=== PATIENT | female | born 2000 ===

== ENCOUNTER 2021-11-29 18:09 | Outpatient (CLI) | payer SELFPAY ==
[2021-11-29 18:35] VITALS: BP 124/80
--- NOTE | 2021-11-29 22:21 | Ultrasound Report ---
ULTRASOUND OBSTETRIC LIMITED ULTRASOUND BIOPHYSICAL PROFILE INDICATION / CLINICAL INFORMATION: BPP. TECHNIQUE: Transabdominal. COMPARISON: None available. FINDINGS: BREATHING MOVEMENT = 2 GROSS BODY MOVEMENT = 2 TONE = 2 QUALITATIVE AMNIOTIC FLUID VOLUME = 2 TOTAL BIOPHYSICAL SCORE = 8/8 HEART RATE (beats per minute): 127 AMNIOTIC FLUID INDEX (cm) = 9.4 (normal = 7-24 cm) PRESENTATION: Cephalic. ADDITIONAL FINDINGS: Placenta is anterior and fundal. No sonographic evidence of placental abruption. IMPRESSION: 1. Biophysical Score = 8/8 2. Amniotic fluid index of 9.4 cm. 3. Placenta is anterior and fundal without sonographic evidence of abruption. Signer Name: Nader Burciaga MD Signed: 11/29/2021 10:17 PM Workstation Name: [id number]
== END 2021-11-29 22:19 | disposition home or self-care (01) ==
LOC: TRG 18:09 → APU 18:11 → TRG 22:25
PROVIDERS: ATTEND Obstetrics & Gynecology
DX: O62.9 Abnormality of forces of labor, unspecified (principal); Z3A.40 40 weeks gestation of pregnancy
CPT/HCPCS: 76815; 76819

== ENCOUNTER 2021-11-30 17:43 | Inpatient (IN) | payer SELFPAY ==
[2021-11-30 20:58] LABS: Bilirubin,Urine NEG (Negative); Blood,Urine NEG (Negative); Color,Urine Yellow (Yellow); Protein,Urine <15 mg/dL mg/dL (Negative); Urobilinogen,Urine < 2.0 mg/dL (<2.0)
[2021-11-30] MEDS ORDERED: ACETAMINOPHEN 500 MG TAB PO ONE (21:00)
[2021-11-30 21:02] LABS: RBC,Urine < 1.0 /HPF (0.0-6.0); WBC,Urine < 1.0 /HPF (0.0-6.0)
[2021-11-30] MEDS ORDERED: LOPERAMIDE 2 MG CAP PO PRN (21:58)
[2021-11-30] MEDS ORDERED: ePHEDrine SULFATE 50 MG/1 ML INJ IV PRN (21:58)
[2021-11-30] MEDS ORDERED: METHYLERGONOVINE MALEATE 0.2 MG/ML VIAL IM PRN (21:58)
[2021-11-30] MEDS ORDERED: MINERAL OIL 30 ML ORAL LIQD PO PRN (21:58)
[2021-11-30] MEDS ORDERED: LIDOCAINE (2%) 20 MG/1 ML VIAL 20 ML MDV INFILTRATI ONE (21:58)
[2021-11-30] MEDS ORDERED: TERBUTALINE 1 MG/1 ML INJ SUB-Q PRN (21:58)
[2021-11-30] MEDS ORDERED: fentaNYL 100 MCG/2 ML INJ IV PRN (21:58)
[2021-11-30] MEDS ORDERED: BUTORPHANOL 2 MG/1 ML INJ IV PRN (21:58)
[2021-11-30] MEDS ORDERED: CARBOPROST TROMETHAMINE 250 MCG/1 ML INJ IM PRN (21:58)
[2021-11-30] MEDS ORDERED: ONDANSETRON 4 MG/2 ML INJ IV PRN (21:58)
--- NOTE | 2021-11-30 22:09 | History and Physical Report ---
History of Present Illness Date of examination: 11/30/21 Chief complaint: LOF History of present illness: 21 y/o at 40-4/7 weeks presents to OBT reporting LOF. No VB. CTX are irregular. Good FM. ROM Plus (-) and CIPRIANO > 7 cm. However, EFW is less than the 1st %-ile. BPP= 10/10. This patient is admitted for IOL secondary to IUGR. Past History Past Medical History: no pertinent history Past Surgical History: no surgical history Family/Genetic History: none Social history: no significant social history - Obstetrical History Expected Date of Delivery: 11/26/21 Actual Gestation: 40 Week(s) 4 Day(s) : 1 Para: 0 Medications and Allergies Allergies Allergy/AdvReac Type Severity Reaction Status Date / Time No Known Allergies Allergy Verified 11/29/21 18:50 Home Medications Medication Instructions Recorded Confirmed Last Taken Type Multivitamin Tablet 1 tab PO DAILY 11/29/21 11/29/21 1 Day Ago History ~11/28/21 Active Meds: Active Medications Acetaminophen (Acetaminophen 325 Mg Tab) 650 mg PO Q4H PRN PRN Reason: Pain, Mild (1-3) Carboprost Tromethamine (Carboprost Tromethamine 250 Mcg/1 Ml Inj) 250 mcg IM ONCE PRN PRN Reason: Uterine Bleeding Ephedrine Sulfate (Ephedrine Sulfate 50 Mg/1 Ml Inj) 10 mg IV Q2M PRN PRN Reason: Hypotension Lactated Ringer's (Lactated Ringers) 1,000 mls @ 125 mls/hr IV DIRECT RAMU Oxytocin/Sodium Chloride (Pitocin/Ns 30 Unit/500ml) 30 units in 500 mls @ 40 mls/hr IV TITR RAMU; Protocol Lidocaine (Lidocaine (2%) 20 Mg/1 Ml Vial 20 Ml Mdv) 20 ml INFILTRATI ONCE ONE Stop: 11/30/21 21:59 Loperamide HCl (Loperamide 2 Mg Cap) 2 mg PO ONCE PRN PRN Reason: give with Hemabate Methylergonovine Maleate (Methylergonovine Maleate 0.2 Mg/Ml Vial) 0.2 mg IM ONCE PRN PRN Reason: Uterine Bleeding Mineral Oil (Mineral Oil 30 Ml Oral Liqd) 30 ml PO QHS PRN PRN Reason: Constipation Terbutaline Sulfate (Terbutaline 1 Mg/1 Ml Inj) 0.25 mg SUB-Q ONCE PRN PRN Reason: Hyperstimulation/Hypertonicity Review of Systems All systems: negative - Vital Signs Vital signs: Vital Signs Pulse Pulse Ox 72 81 L 11/30/21 18:02 11/30/21 18:02 Temp Pulse Resp BP Pulse Ox 98.4 F 67 18 122/77 98 11/30/21 18:08 11/30/21 22:03 11/30/21 18:08 11/30/21 18:08 11/30/21 22:03 - Physical Exam Breasts: Positive: normal Cardiovascular: Regular rate Lungs: Positive: Normal air movement Abdomen: Positive: normal appearance Genitourinary (Female): Positive: normal external genitalia Vulva: both: normal Vagina: Positive: normal moisture Uterus: Positive: enlarged Adnexa: both: normal Anus/Rectum: Positive: normal perianal skin Extremities: Positive: normal Deep Tendon Reflex Grade: Normal +2 - Obstetrical FHR: other (NST is reactive) Cervical Dilatation: 2 Cervical Effacement Percentage: 50 station: -3 Results All other labs normal. Ultrasound: pending Assessment and Plan - Patient Problems (1) 40 weeks gestation of Current Visit: Yes Status: Acute Plan to address problem: Prentatal care is up-to-date. Need to obtain records and GBS status in AM. (2) IUGR (intrauterine growth restriction) Current Visit: Yes Status: Acute Plan to address problem: Etiology is unknown. EFW is less than the 1st %-ile. Plan is IOL. Ripen cervix with Cytotec.
--- NOTE | 2021-11-30 22:28 | Ultrasound Report ---
ULTRASOUND OBSTETRIC LIMITED INDICATION / CLINICAL INFORMATION: EFW, CIPRIANO. Clinical Gestational Age (GA) in weeks, days: 40 weeks 4 days TECHNIQUE: Transabdominal. COMPARISON: Ultrasound 11/29/2021. FINDINGS: HEART RATE (beats per minute): 131 AMNIOTIC FLUID INDEX (cm) = 7.4 (normal = 7-24 cm) PRESENTATION: Cephalic. BREATHING MOVEMENT = 2 GROSS BODY MOVEMENT = 2 TONE = 2 QUALITATIVE AMNIOTIC FLUID VOLUME = 2 TOTAL BIOPHYSICAL SCORE = 8/8 Biparietal Diameter = 9.2 cm = 37, 3 weeks, days Head Circumference = 33.0 cm = 37, 4 weeks, days Abdominal Circumference = 28.9 cm = 32, 6 weeks, days Femur Length = 6.8 cm = 35, 1 weeks, days Average Ultrasound Age (AUA) = 35, 5 weeks, days Estimated Weight in grams (if calculated): 2431 ADDITIONAL FINDINGS: None. IMPRESSION: 1. Single living gestation as above. 2. Biophysical Score = 8/8 . 3. Amniotic index 7.4 cm. Signer Name: Teto Bradley MD Signed: 11/30/2021 10:24 PM Workstation Name: [id number]
[2021-11-30 23:23] LABS: Hematocrit 37.7 % (30.3-42.9); Hemoglobin 12.3 gm/dl (10.1-14.3); Mean Corpuscular HGB Conc 33 % (30-34); Mean Corpuscular Volume 82 fl (79-97); Platelet Count 237 K/mm3 (140-440); Red Blood Count 4.59 M/mm3 (3.65-5.03); Red Cell Distribution Width 15.6 % (13.2-15.2)
[2021-11-30] MEDS: LACTATED RINGERS 1,000 ML IV SCH (23:29)
[2021-12-01] MEDS: miSOPROStol 25 MCG TAB PO SCH ×2 (00:15→04:01)
[2021-12-01] MEDS ORDERED: OXYTOCIN 10 UNIT/1 ML INJ ONE (04:48)
[2021-12-01] MEDS ORDERED: LIDOCAINE (2%) 20 MG/1 ML VIAL 20 ML MDV INFILTRATI ONE ×4 (04:48→19:56)
[2021-12-01] MEDS: ACETAMINOPHEN 325 MG TAB PO PRN ×2 (05:40→17:31)
[2021-12-01] MEDS ORDERED: AMPICILLIN/NS 2 GM/100 ML 2 GM/100 ML BAG IV SCH (08:00)
[2021-12-01] MEDS ORDERED: BUTORPHANOL 2 MG/1 ML INJ ONE (08:07)
[2021-12-01] MEDS: OXYTOCIN DRIP 30 UNITS/500 ML BAG IV SCH ×2 (08:22→20:54)
[2021-12-01] MEDS ORDERED: OXYTOCIN DRIP 30 UNITS/500 ML BAG IV SCH ×2 (10:00→21:20)
[2021-12-01] MEDS: LACTATED RINGERS 1,000 ML IV SCH ×2 (10:40→15:53)
--- NOTE | 2021-12-01 10:43 | Event Note ---
Date: 12/01/21 pt evaluated after report received from Dr. Fernandez that pt had SROM and same clear. FHR category I and pelvic 4/100/-1 and pitocin gave and 3rd dose of cytotec cancelled. Pit now at 6mu/min; pt has received stadol x1 dose per nurse. Pt encouraged to get epidural and IUPC placed with frequent ctx seen. Expect .
[2021-12-01] MEDS ORDERED: fentaNYL-BUPIV 2 MCG/ML-0.125% 200 MCG/100 ML BAG EPIDURAL SCH (12:00)
[2021-12-01] MEDS ORDERED: LACTATED RINGERS 250 ML IV SOLN IV ONE (12:00)
[2021-12-01] MEDS ORDERED: ePHEDrine SULFATE 50 MG/1 ML INJ IV PRN (12:00)
[2021-12-01] MEDS ORDERED: diphenhydrAMINE 50 MG/ML VIAL IV PRN (12:00)
[2021-12-01] MEDS ORDERED: ONDANSETRON 4 MG/2 ML INJ IV PRN ×3 (12:00→21:20)
[2021-12-01] MEDS ORDERED: NALOXONE 2 MG/2 ML INJ IV PRN (12:00)
[2021-12-01] MEDS ORDERED: NalbUPHINE 10 MG/1 ML INJ IV PRN ×2 (12:00→13:50)
--- NOTE | 2021-12-01 12:04 | Anesthesia Consultation ---
Anesthesia Consult and Med Hx Date of service: 12/01/21 - Airway Anesthetic Teeth Evaluation: Good ROM Head & Neck: Adequate Mental/Hyoid Distance: Adequate Mallampati Class: Class II Intubation Access Assessment: Probably Good - Pulmonary Exam CTA: Yes - Cardiac Exam Cardiac Exam: RRR - Pre-Operative Health Status ASA Pre-Surgery Classification: ASA2 Proposed Anesthetic Plan: Epidural - Pulmonary Hx Smoking: No Hx Asthma: No COPD: No Hx Pneumonia: No Hx Sleep Apnea: No - Cardiovascular System Hx Hypertension: No Hx Heart Attack/AMI: No Hx Angina: No - Central Nervous System Hx Seizures: No Hx Psychiatric Problems: No - Gastrointestinal Hx Gastroesophageal Reflux Disease: No - Endocrine Hx Renal Disease: No Hx End Stage Renal Disease: No Hx Liver Disease: No Hx Insulin Dependent Diabetes: No Hx Non-Insulin Dependent Diabetes: No Hx Hypothyroidism: No Hx Hyperthyroidism: No - Hematic Hx Anemia: No Hx Sickle Cell Disease: No - Other Systems Hx Alcohol Use: No
--- NOTE | 2021-12-01 12:05 | Progress Note ---
Labor Epidural - Labor Epidural Start Time: 11:35 Stop Time: 11:40 Performed by:: EDMOND BONILLA (Adelina Bueno SRNA) Procedure: Patient is requesting epidural for labor and pain. H&P, labs were reviewed. Patient IDed, H&P reviewed, all questions and concerns were answered, and consent was signed. Timeout was performed at bedside. Patient in sitting position. Sterile prep and drape was performed. 3ml of 1% lidocaine skin wheal at L[3]- L [4]. 17-gauge Tuohy epidural needle was advanced to loss of resistance with air technique 6cm. Negative CSF negative blood. Epidural catheter advanced to [12] centimeters. [negative] Aspiration [negative] test dose. Sterile dressing applied. Patient tolerated procedure.
--- NOTE | 2021-12-01 13:51 | Anesthesia Day of Surgery ---
Anesthesia Day of Surgery - Day of Surgery Patient Examined: Yes Patient H&P Reviewed: Yes Patient is NPO: Yes Beta Blockers: No Cardiac Clearance: No Pulmonary Clearance: No Uli's Test: N/A
[2021-12-01] MEDS ORDERED: NALOXONE 0.4 MG/1 ML INJ IV PRN (14:00)
[2021-12-01] MEDS ORDERED: AMPICILLIN/NS 1 GM/50 ML 1 GM/50 ML BAG IV SCH (14:00)
[2021-12-01] MEDS ORDERED: PROMETHAZINE 25 MG TAB PO PRN ×2 (15:00→21:20)
[2021-12-01] MEDS ORDERED: PROMETHAZINE 25 MG RECT SUPP PR PRN ×2 (15:00→21:20)
[2021-12-01] MEDS ORDERED: HYDROmorphone 1 MG/1 ML INJ IV PRN (15:00)
[2021-12-01] MEDS ORDERED: miSOPROStol 200 MCG TAB ONE (17:42)
[2021-12-01] MEDS ORDERED: GENTAMICIN/NS 80 MG/100 ML 100 ML IV ONE (19:18)
--- NOTE | 2021-12-01 20:35 | Procedure Note ---
OB Delivery Note - Delivery Date of Delivery: 12/01/21 Surgeon: LUNA BAILEY Estimated blood loss: other (250cc) - Vaginal Delivery presentation: vertex Delivery position: OA Intrapartum events: febrile- temp >100.3, other(please specify) (multiple condyloma at introitus more on right side and perineum) Delivery induction: none Delivery augmentation: pitocin Delivery monitor: external FHT, external uterine, internal uterine Route of delivery: Delivery placenta: spontaneous Delivery cord: nuchal cord, 3 umbilical vessels Episiotomy: none Delivery laceration: 1st degree (to right and left labia), 2nd degree (left vaginal wall) Delivery repair: chromic Anesthesia: local (lidocaine 1%), epidural Delivery comments: Pt complete and allowed to labor down. Pt then taught how to push effectively and epidural cut in half and pt could sense where and how to push effectively. SAVD of viable female infant uncomplicated. Nuchal cord tight and cut in between on perineum then delivered without difficulty. Placenta delivered complete and small amount calcifications noted. Pt given additional lidocaine to repair left and right 1st degree labial laceration using 2-0 chromic running locked suture and left "L" shaped laceration to vaginal wall that extended to perineum and this alos repaired with 2-0 chromic running locked suture with excellent hemostasis. Bimanual done and uterus firm. Will give pitocin x2 bags. Mom and baby stable. Pt to receive amp and gent antibiotics x24hrs to treat chorio and peds notified. Incidental note is multiple condyloma (not herpes) noted at delivery and peds notified. - Infant A at 1 minute: 8 at 5 minutes: 9 Infant Gender: Female (clear fluid and meconium small amount noted after baby delivered; wt 3100g)
[2021-12-01] MEDS ORDERED: diphenhydrAMINE 25 MG CAP PO PRN (21:20)
[2021-12-01] MEDS ORDERED: MAGNESIUM HYDROXIDE (MOM) ORAL LIQD UDC PO PRN (21:20)
[2021-12-01] MEDS ORDERED: oxyCODONE /ACETAMINOPHEN 5-325MG TAB PO PRN (21:20)
[2021-12-01] MEDS ORDERED: WITCH HAZEL/ GLYCERIN PAD TP PRN (21:20)
[2021-12-01] MEDS ORDERED: LANOLIN/ZINC/DIMETHICONE (LANSINOH) 7 GM TP PRN (21:20)
[2021-12-01] MEDS: GENTAMICIN 350 MG in SODIUM CHLORIDE 0.9% 100 ML IV SCH (22:48)
[2021-12-01] MEDS: IBUPROFEN 600 MG TAB PO SCH (23:30)
[2021-12-01] MEDS: DOCUSATE SODIUM 100 MG CAP PO SCH (23:31)
[2021-12-02] MEDS: AMPICILLIN/NS 2 GM/100 ML 2 GM/100 ML BAG IV SCH ×4 (05:05→23:51)
[2021-12-02] MEDS: LACTATED RINGERS 1,000 ML IV SCH (05:05)
[2021-12-02] MEDS: IBUPROFEN 600 MG TAB PO SCH ×3 (05:06→23:51)
[2021-12-02] MEDS ORDERED: PRENATAL VIT27-FE FUMARATE-FOLIC ACID VIT TAB PO SCH (10:00)
--- NOTE | 2021-12-02 10:39 | Progress Note ---
Assessment and Plan A: PP Day #1 Stable P: Follow Routine Orders 12 hour H/H Pending Subjective - Subjective Date of service: 12/02/21 Patient reports: appetite normal, voiding normally, pain well controlled, flatus, ambulating normally : doing well, bottle feeding Objective - Vital Signs Latest vital signs: Vital Signs Temp Pulse Resp BP BP Pulse Ox Pulse Ox 12/02/21 08:50 100 12/02/21 07:54 97.9 F 71 17 93/57 96 12/02/21 05:03 98 12/02/21 05:00 98.2 F 63 18 101/62 98 12/02/21 03:20 97 12/02/21 02:20 97 12/02/21 00:45 97 12/02/21 00:25 97.3 F L 96 H 18 122/78 94 12/01/21 23:30 97 12/01/21 22:50 98.5 F 76 18 115/86 97 97 12/01/21 22:30 18 12/01/21 21:23 92 H 113/60 93 12/01/21 21:20 122 H 95 12/01/21 21:17 92 H 94 12/01/21 21:15 81 98 12/01/21 21:10 73 98 12/01/21 21:08 77 110/59 12/01/21 21:05 90 97 12/01/21 21:00 80 96 12/01/21 20:55 77 96 12/01/21 20:53 88 120/62 92 12/01/21 20:50 89 97 12/01/21 20:45 109 H 98 12/01/21 20:40 106 H 97 12/01/21 20:38 98 H 106/65 12/01/21 20:35 110 H 96 12/01/21 20:30 105 H 96 12/01/21 20:25 84 96 12/01/21 20:23 96 H 108/67 12/01/21 20:20 97 H 98 12/01/21 20:15 85 96 12/01/21 20:10 86 96 12/01/21 20:08 95 H 102/58 93 12/01/21 20:05 89 96 12/01/21 20:00 89 94 12/01/21 19:55 83 96 12/01/21 19:53 83 109/58 94 12/01/21 19:50 87 98 12/01/21 19:39 66 100 12/01/21 19:35 60 89 12/01/21 19:32 118 H 100 12/01/21 19:25 125 H 99 12/01/21 19:20 115 H 99 12/01/21 19:15 104 H 95 12/01/21 19:10 111 H 94 12/01/21 19:09 117 H 94 12/01/21 19:05 106 H 95 12/01/21 19:03 113 H 94 12/01/21 19:00 98 H 97 12/01/21 18:55 100 H 99 12/01/21 18:50 96 H 98 12/01/21 18:45 104 H 100 12/01/21 18:40 111 H 99 12/01/21 18:35 98 H 98 12/01/21 18:30 102 H 100 12/01/21 18:25 105 H 99 12/01/21 18:20 107 H 99 12/01/21 18:15 119 H 98 12/01/21 18:10 114 H 97 12/01/21 18:05 120 H 99 12/01/21 18:01 101.3 F H 12/01/21 18:00 143 H 100 12/01/21 17:55 176 H 98 12/01/21 17:50 120 H 99 12/01/21 17:45 102 H 100 12/01/21 17:40 108 H 99 12/01/21 17:39 118 H 113/81 12/01/21 17:35 122 H 99 12/01/21 17:30 103 H 99 12/01/21 17:25 98 H 99 12/01/21 17:24 98 H 119/77 12/01/21 17:20 111 H 99 12/01/21 17:15 95 H 99 12/01/21 17:10 100 H 100 12/01/21 17:09 106 H 121/77 12/01/21 17:05 96 H 100 12/01/21 17:00 92 H 100 12/01/21 16:55 94 H 100 12/01/21 16:53 84 122/77 12/01/21 16:50 89 100 12/01/21 16:45 79 100 01/25/22 16:40 76 100 12/01/21 16:38 82 129/82 12/01/21 16:35 92 H 100 12/01/21 16:30 90 100 12/01/21 16:25 78 100 12/01/21 16:23 85 125/79 12/01/21 16:20 78 100 12/01/21 16:15 70 100 12/01/21 16:10 87 100 12/01/21 16:09 80 123/80 12/01/21 16:05 75 100 12/01/21 16:00 75 100 12/01/21 15:55 83 100 12/01/21 15:53 73 136/86 12/01/21 15:50 77 100 12/01/21 15:45 98 H 100 12/01/21 15:40 69 100 12/01/21 15:38 75 137/78 12/01/21 15:35 74 99 12/01/21 15:30 76 100 12/01/21 15:25 80 100 12/01/21 15:24 87 125/81 12/01/21 15:20 95 H 98 12/01/21 15:15 78 100 12/01/21 15:10 79 100 12/01/21 15:08 73 130/81 12/01/21 15:05 78 100 12/01/21 15:00 80 100 12/01/21 14:55 97 H 100 12/01/21 14:54 73 138/80 12/01/21 14:50 65 100 12/01/21 14:45 95 H 100 12/01/21 14:40 67 100 12/01/21 14:38 63 118/76 12/01/21 14:35 66 100 12/01/21 14:30 82 100 12/01/21 14:25 71 100 12/01/21 14:23 67 121/80 12/01/21 14:20 59 L 99 12/01/21 14:15 60 99 12/01/21 14:10 60 100 12/01/21 14:08 67 122/78 12/01/21 14:05 63 99 12/01/21 14:00 62 100 12/01/21 13:55 69 100 12/01/21 13:54 60 125/82 12/01/21 13:50 65 99 12/01/21 13:45 62 99 12/01/21 13:40 78 98 12/01/21 13:38 76 115/73 12/01/21 13:35 71 100 12/01/21 13:30 88 99 12/01/21 13:25 76 98 12/01/21 13:23 76 119/81 12/01/21 13:20 74 98 12/01/21 13:15 70 98 12/01/21 13:10 89 99 12/01/21 13:08 90 116/77 12/01/21 13:05 102 H 97 12/01/21 13:04 70 L 12/01/21 12:58 77 99 12/01/21 12:54 67 126/84 12/01/21 12:53 69 97 12/01/21 12:48 73 99 12/01/21 12:43 66 98 12/01/21 12:38 87 104/62 98 12/01/21 12:33 86 99 12/01/21 12:28 72 98 12/01/21 12:23 79 101/57 98 12/01/21 12:18 94 H 97 12/01/21 12:13 87 98 12/01/21 12:09 91 H 98/57 12/01/21 12:08 91 H 97 12/01/21 12:03 99 H 97 12/01/21 11:58 99 H 97 12/01/21 11:53 89 107/65 97 12/01/21 11:51 90 105/66 12/01/21 11:49 91 H 102/70 12/01/21 11:47 97 H 112/63 12/01/21 11:40 81 111/55 12/01/21 11:38 75 99 12/01/21 11:37 76 119/56 12/01/21 11:34 82 118/61 94 12/01/21 11:33 60 100 Intake and Output 12/01/21 12/02/21 12/02/21 22:59 06:59 14:59 Intake Total 83.2 1240 240 Output Total 1600 Balance 83.2 -360 240 Intake: IV 83.2 1000 Lactated Ringers 1,000 ml 1000 @ 125 mls/hr IV DIRECT RAMU Rx#:[id number] PITOCin/NS 30 UNIT/500ML 83.2 30 units In 500 ml @ 40 mls/hr IV TITR RAMU Rx#: [id number] Oral 240 240 Output: Urine 1600 Void 1600 Other: Total, Intake Amount 240 240 Total, Output Amount 600 # Voids Void 2 1 Estimated Blood Loss 250 - Exam Breasts: Present: normal Cardiovascular: Present: Regular rate Lungs: Present: Clear to auscultation, Normal air movement Abdomen: Present: normal appearance, soft, normal bowel sounds Uterus: Present: normal, firm, fundal height below umbilicus Extremities: Present: normal
--- NOTE | 2021-12-02 13:54 | Post Anesthesia Evaluation ---
- Post Anesthesia Evaluation Patient Participated: Yes Airway Patent: Yes Stable Respiratory Function: Yes Nausea/Vomiting: No Temp > 96.8F: Yes Pain Manageable: Yes Adequeate Hydration: Yes Anesthesia Complications: No Block Receding Appropriately: Yes Patient on Ventilator: No
[2021-12-02 16:11] LABS: Hematocrit 35.1 % (30.3-42.9); Hemoglobin 11.2 gm/dl (10.1-14.3); Mean Corpuscular HGB Conc 32 % (30-34); Mean Corpuscular Volume 85 fl (79-97); Platelet Count 201 K/mm3 (140-440); Red Blood Count 4.13 M/mm3 (3.65-5.03); Red Cell Distribution Width 16.3 % (13.2-15.2)
[2021-12-02] MEDS: DOCUSATE SODIUM 100 MG CAP PO SCH (22:29)
[2021-12-02] MEDS: GENTAMICIN 350 MG in SODIUM CHLORIDE 0.9% 100 ML IV SCH (22:29)
[2021-12-03] MEDS: AMPICILLIN/NS 2 GM/100 ML 2 GM/100 ML BAG IV SCH ×2 (04:40→15:21)
[2021-12-03] MEDS: IBUPROFEN 600 MG TAB PO SCH (04:41)
--- NOTE | 2021-12-03 10:23 | Discharge Summary ---
Providers - Providers Date of Admission: 11/30/21 21:58 Date of discharge: 12/03/21 Attending physician: LUNA BAILEY Primary care physician: LUNA BAILEY Hospitalization Reason for admission: active labor, IUP at term Delivery: Episiotomy: none Laceration: 1st degree Incision: normal, intact Other procedures: other (abt for chrio) complications: pelvic infection Discharge diagnosis: IUP at term delivered baby: female Hospital course: Pt was admitted to [facility] and had a . She dev chrio and was treated with abt. See H&P, delsummary, and pp notes. Condition at discharge: Stable Disposition: HOME / SELF CARE / HOMELESS Plan - Discharge Medications Prescriptions: Ibuprofen [Motrin 600 MG tab] 600 mg PO Q6HR PRN #30 tablet PRN Reason: Menstrual Cramps - Provider Discharge Summary Additional instructions: [] Smoking cessation referral if applicable(refer to patient education folder for contact #) [] Refer to [facility] Call your doctor immediately for: * Fever > 100.5 * Heavy vaginal bleeding ( >1 pad per hour) * Severe persistent headache * Shortness of breath * Reddened, hot, painful area to leg or breast * Drainage or odor from incision. * Keep incision clean and dry at all times and follow doctor's instructions regarding bathing/showering - Follow up plan Follow up: LUNA BAILEY MD [Primary Care Provider] - 6 Weeks
[2021-12-03] MEDS: DOCUSATE SODIUM 100 MG CAP PO SCH (13:20)
[2021-12-03] MEDS ORDERED: AMPICILLIN/NS 2 GM/100 ML 2 GM/100 ML BAG IV ONE (15:16)
[2021-12-03 21:11] VITALS: BP 117/76
== END 2021-12-03 20:30 | disposition home or self-care (01) | DRG 807 ==
LOC: TRG 17:43 → APU 17:44 → TRG 21:58 → LD 21:58 → OB 12-01 23:01
PROVIDERS: ADMIT Obstetrics & Gynecology; ATTEND Obstetrics & Gynecology
PROC: 10E0XZZ Delivery of Products of Conception, External Approach (ICD-10-PCS; principal; 2021-12-01)
PROC: 0KQM0ZZ Repair Perineum Muscle, Open Approach (ICD-10-PCS; 2021-12-01)
PROC: 3E0R3BZ Introduction of Anesthetic Agent into Spinal Canal, Percutaneous Approach (ICD-10-PCS; 2021-12-01)
PROC: 00HU33Z Insertion of Infusion Device into Spinal Canal, Percutaneous Approach (ICD-10-PCS; 2021-12-01)
DX: O36.5930 Maternal care for other known or suspected poor fetal growth, third trimester, not applicable or unspecified (principal); Z37.0 Single live birth; O69.81X0 Labor and delivery complicated by cord around neck, without compression, not applicable or unspecified; Z3A.40 40 weeks gestation of pregnancy; O70.1 Second degree perineal laceration during delivery
CPT/HCPCS: 36415; 59025; 76816; 76819; 81001; 84112; 85027; 86850; 86900; 86901; G0378; J3490; J0290; J0595; J1580; J2590; J7120; U0003